=== PATIENT | male | born 2000 | race Caucasian/White ===

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

== ENCOUNTER 2022-02-11 11:39 | Emergency (ER) | payer MEDICAID, SELFPAY ==
[2022-02-11] VITALS (57 sets, daily range): BP systolic 100–123; BP diastolic 57–73; PULSE 54–78; RESP 6–24; TEMP 36.7; O2SAT 95–100
--- NOTE | 2022-02-11 12:00 | RT.EKG_ITS ---
APPROVED REPORT Exam: Resting ECG Reason for Exam: syncope Patient Location: E HR:61 bpm ECG Measurements Heart Rate 61 AXIS MN 194 P 50 QRSd 99 QRS 62 QT 372 T 46 QTc 375 Conclusion Sinus rhythm...normal P axis, V-rate 60- 99 ST elev, probable normal early repol pattern...ST elevation, age<55. Sinus. Normal axis. MN depression in diffuse leads. Early repolarization. No STEMI. I have reviewed and interpreted ECG and agree with software generated interpretation.
[2022-02-11 12:13] LABS: Abs Immature Grans 0.03 10^3/uL (0.0-0.06); Absolute Basophil Count 0.07 10^3/uL (0.0-0.2); Absolute Eosinophil Count 0.19 10^3/uL (0.0-0.7); Absolute Lymphocyte Count 1.27 10^3/uL (1.2-3.4); Absolute Monocyte Count 0.75 10^3/uL (0.1-0.8); Absolute Neutrophil Count 3.11 10^3/uL (1.2-6.7); Basophils % 1.3; Eosinophils % 3.5; HCT 37.4 % (40.0-50.0); HGB 12.8 g/dL (13.5-17.5); Immature Grans % 0.6; Lymphocytes % 23.4; MCH 31.9 pg (27.0-33.0); MCHC 34.2 % (32.0-36.0); MCV 93 fL (80-95); MPV 9.4 fL (8.0-11.0); Monocytes % 13.8; Neutrophils % 57.4; Platelet Count 246 10^3/uL (130-400); RBC 4.01 10^6/uL (4.36-5.78); RDW 12.3 % (11.8-14.1); RDW-SD 42.5 fL; WBC 5.42 10^3/uL (4.4-10.8)
--- NOTE | 2022-02-11 12:15 | DI.CT_ITS ---
Exam(s) CT HEAD WO EXAM: CT HEAD WO CLINICAL HISTORY: seizure vs syncope. TECHNIQUE: Imaging Protocol: Axial computed tomography images with coronal and sagittal reformatted images were created and reviewed COMPARISON: CT CT ORBITS WO from 04/24/2021 FINDINGS: There are no skull fractures. There is mucosal thickening and fluid in both maxillary sinuses consist ent with sinusitis. There is also mucosal thickening in the right sphenoid sinus. Left frontal sinu ses clear. Right frontal sinuses not developed. There is no fluid in the mastoid air cells. There is no evidence of intracranial hemorrhage, mass effect, or shift of midline structures. There are no extra-axial fluid collections. The ventricles are not enlarged or shifted and there is no blo od within the ventricular system nor within the basal cisterns. There is mural calcification evident within the left intracavernous internal carotid artery. No calc ification within the opposite-right ICA nor within the vertebral arteries at the skull base. IMPRESSION: There is calcification within the wall of the left internal carotid artery within the cavernous sinus . This is not a normal finding in a 21-year-old patient. Recommend further imaging. There is acute bilateral maxillary sinusitis. First read by [facility] Final report called by myself to ER physician 02/11/2022 2:55 p.m. RADIATION DOSE DELIVERED: 713.52mGy.cm Total DLP DATA REPOSITORY: All CT scans at this facility are submitted to the National Radiology Data Registry (NRDR) Dose Index Registry (DIR) with the [employer] (ACR). RADIATION OPTIMIZATION: All CT scans at this facility use at least one of these dose optimization te chniques: automated exposure control; mA and/or kV adjustment per patient size (includes targeted exa ms where dose is matched to clinical indication); or iterative reconstruction.
[2022-02-11 12:27] LABS: ALT 23 U/L (16-63); AST 17 U/L (15-37); Albumin 3.8 g/dL (3.4-5.0); Alkaline Phosphatase 84 U/L (46-116); Anion Gap 7.9 mmol/L (3-11); BUN 10 mg/dL (7-18); Bilirubin, Total 0.4 mg/dL (0.2-1.0); CO2 27.1 mmol/L (21.0-32.0); CREATININE 0.9 mg/dL (0.70-1.30); Calcium 8.7 mg/dL (8.5-10.1); Chloride 103 mmol/L (98-107); Estimated GFR 126.17 (mL/min/1.73m2); Glucose 109 mg/dL (74-106); Potassium 3.4 mmol/L (3.5-5.1); Sodium 138 mmol/L (136-145); Total Protein 7.1 g/dL (6.4-8.2)
[2022-02-11 13:12] LABS: Bilirubin Negative (Negative); Blood Negative (Negative); Clarity Sl Cloudy (Clear); Glucose Negative (Negative); Ketones Negative (Negative); Leukocyte Esterase Negative (Negative); Nitrite Negative (Negative); Urobilinogen 0.2 EU/dL (Up TO 0.2); pH 8.5 (5-8)
--- NOTE | 2022-02-11 13:15 | DI.CT_ITS ---
Exam(s) CT BRAIN NECK CTA EXAM: CT BRAIN NECK CTA CLINICAL HISTORY: syncope, dizzy. TECHNIQUE: Imaging Protocol: Axial CT angiography was performed with multi-slice acquisition and mu lti-planar and/or 3D reconstructions. CONTRAST MATERIAL: Intravenous: Omnipaque 350 Contrast volume:structured data in ml COMPARISON: CT CT renal colic wo from 06/09/[address] HEAD WO from 02/11/2022 FINDINGS: CTA Neck W: Aortic arch anatomy: The aortic arch anatomy is conventional and there is no significant stenosis at the origin of the great vessels off of the aortic arch. No intimal flap evident. Anterior circulation: Both common carotid arteries ascend with normal luminal diameters. At the level the carotid bulbs and proximal internal carotid arteries there is no significant plaque evident. No stenosis in the carotid bulbs and proximal ICAs and upper ICAs in the neck bilaterally. Posterior circulation: Vertebral arteries originated conventional fashion off of the subclavian arteries and there is no obv ious stenosis at the origin of the vertebral arteries. Both vertebral arteries exhibit normal equal luminal diameters within the foramen transversarium. Both vertebral arteries contribute to the formation of the basilar artery at the skull base. CTA Brain W: Anterior circulation: Both internal carotid arteries are patent in the skull base-carotid canals as well as within the cave rnous sinuses. There is no obvious significant stenosis within the left intracavernous and supraclin oid ICA. The supraclinoid aspects of the ICAs are patent. Left A1 segment is patent. Right A1 segment is not opacified, possibly developmental. Both anterior cerebral arteries are patent. No obvious aneurysm . Both middle cerebral arteries are patent with no evidence of significant stenosis nor intraluminal th rombus. There also no aneurysms of these vessels. Posterior circulation: The basilar artery ascends in the midline. Distally it gives off patent bilateral superior cerebella r arteries. Above this level the basilar artery terminates as patent right posterior cerebral artery. The patent left posterior cerebral artery is supplied by posterior communicating artery on the left side of the [id number]. There is no evidence of aneurysm at the tip of the basilar artery nor elsewhere in the [id number] is. CT BRAIN: There is no evidence of intracranial hemorrhage, mass effect, or shift of midline structures. There are no extra-axial fluid collections. Ventricles are not enlarged or shifted. There are no ring enh ancing lesions in the brain and no abnormal meningeal enhancement. IMPRESSION: 1. Patent carotid arteries in the neck. No hemodynamically significant stenosis. 2. Patent vertebral arteries. 3. Patent intracranial arteries. Discussed by phone with ER physician RADIATION DOSE DELIVERED: 1,193.41mGy.cm Total DLP DATA REPOSITORY: All CT scans at this facility are submitted to the National Radiology Data Registry (NRDR) Dose Index Registry (DIR) with the [employer] (ACR). RADIATION OPTIMIZATION: All CT scans at this facility use at least one of these dose optimization te chniques: automated exposure control; mA and/or kV adjustment per patient size (includes targeted exa ms where dose is matched to clinical indication); or iterative reconstruction.
[2022-02-11 13:17] LABS: *AMPHETAMINES SCREEN URINE Negative (Negative); *BARBITURATES SCREEN URINE Negative (Negative); *BENZODIAZEPINES SCREEN URINE Negative (Negative); Cannabinoids THC Positive (Negative); Cocaine Screen,Urine Negative (Negative); METHADONE URINE SCREEN Negative (Negative); OPIATES URINE SCREEN Negative (Negative)
[2022-02-11 13:19] LABS: Tricyclic Antidepressants Negative (Negative)
--- NOTE | 2022-02-11 13:19 | DI.VRAD_ITS ---
PROCEDURE INFORMATION: Exam: CT Head Without Contrast Exam date and time: 02/11/2022 1:01 PM Age: 21 years old Clinical indication: Patient HX: Seizure<24hrs; Dizziness; Additional info: Family HX brain aneurysm in father during teenage years TECHNIQUE: Imaging protocol: Computed tomography of the head without contrast. Radiation optimization: All CT scans at this facility use at least one of these dose optimization techniques: automated exposure control; mA and/or kV adjustment per patient size (includes targeted exams where dose is matched to clinical indication); or iterative reconstruction. COMPARISON: CT HEAD WO 04/24/2021 2:18 PM FINDINGS: Brain: Normal. No hemorrhage. Unremarkable white matter. No mass effect. Cerebral ventricles: No ventriculomegaly. Paranasal sinuses: Moderate mucosal thickening in the bilateral maxillary sinuses and fluid in the right maxillary sinus. Mucosal thickening in the bilateral anterior ethmoidal air cells. Right frontal sinus is hypoplastic. Mild mucosal thickening in the bilateral sphenoidal sinuses. Mastoid air cells: Visualized mastoid air cells are well aerated. Bones/joints: No acute fracture. Soft tissues: Unremarkable. IMPRESSION: 1. No acute intracranial abnormality. 2. Sinusitis as described above. Dictated and Authenticated by: Cordell Rojas MD. Ordering:[id number] Taylor MD
[2022-02-11 13:23] LABS: Bacteria Moderate HPF (Negative); C & S Indicated? Yes; Casts 0-2 Coarse Granular LPF (Negative); Crystals Few Amorphous HPF (Negative); Epithelial Cells Rare HPF (Negative); Mucus Trace (Negative); RBC 0-2 HPF (0-2); WBC 0-2 HPF (0-5)
[2022-02-11 13:24] LABS: ETHANOL BLOOD 3.6 mg/dL (<10); Magnesium 1.8 mg/dL (1.8-2.4); TSH 2.54 uIU/mL (0.52-4.13)
[2022-02-11] MEDS: Normal Saline - Diluent 50 ML VIAL IJ (13:32)
[2022-02-11] MEDS: Omnipaque 350 MG/ML 100 ML BTL IJ (13:32)
[2022-02-11] MEDS: Normal Saline Flush 10 ML SYR IVP (13:33)
--- NOTE | 2022-02-11 13:53 | NUR.NOTE ---
Nursing Note: lying
--- NOTE | 2022-02-11 14:26 | W.ED.GENAD ---
Discharge Plan Disposition Patient Disposition: Home Condition: Stable Discharge Details Clinical Impression: Loss of consciousness Primary Care Provider: Deb Rucker ED Provider: Claudia Kidd Home Meds and New Rx's Prescriptions: New ondansetron 4 mg tablet,disintegrating 4 mg PO DAILY Qty: 10 0RF Discharge Instructions Instructions: Syncope (DC), New-Onset Seizure in Adults (ED) Additional Instructions: At this time is unclear as to what caused your alteration in mental status, could be a syncopal or fainting spell or seizure Your CAT scans of your head and vessels do not show evidence of abnormality and your labs are all within normal limits I am referring you to neurology for outpatient follow-up I do not recommend operating a vehicle, working at height, or any activities where you may place her self at harm if you were to have another event Return earlier with recurrent episode, or with any new or worsening complaints Giving a prescription for Zofran as needed for nausea and vomiting Referrals: Deb Rucker MD [Primary Care Provider] - 1 day Alla Ramirez MD [ [facility] STAFF PHYSICIAN] - 1 day Medical Decision Making This 21-year-old male with history of period of alteration in mental status in the presence of syncope and upper respiratory symptoms His vitals have been stable and orthostatics did not show evidence of acute abnormality Diagnostic blood work does not show acute abnormality CT scan of brain was ordered initially CTA was ordered as there was mention of family member with a ruptured aneurysm, aneurysm was over read as without acute abnormality Patient remained stable throughout this encounter with stable vitals, ambulatory with steady gait Driving cessation, neurology referral, pediatric reassessment There was mention of sinusitis on CT scan, patient is asymptomatic with this and I do not see indication for antibiotics at this time There was no evidence of dysrhythmia on telemetry monitoring Return precautions discussed and patient expressed understanding Discharged home in care of his mother Medical Records Medical records reviewed: Yes I reviewed the patient's medical records. Lab Data Lab results reviewed: Yes I reviewed the patient's lab results. HPI General Date/Time Provider Initiated Documentation: 02/11/22 11:59. HPI Narrative: This 21-year-old male presents with report of seizure versus syncope, period of alteration mental status at approximately an hour prior to arrival. He has reportedly walking out of his room after using the restroom to urinate when he fell onto his bed and then rolled onto his floor. Parents are in the room and noticed that his hands are contracted and his back was arched. He was unresponsive for approximately 1 minute without any convulsions noted. When he regained consciousness he reportedly was slightly confused and tired. He has been sick with nausea and chills for the past several days reportedly. He denies any illicit drug use or alcohol consumption. He smokes marijuana but denies any additional medical drugs. He denies any chest pain or shortness of breath. He denies any dizziness or weakness. Denies any vision change. Related Data Home Medications Medication Instructions Recorded Confirmed ondansetron 4 mg disintegrating 4 mg PO DAILY #10 tabs 02/11/22 tablet Previous Rx's Medication Instructions Recorded ondansetron 4 mg disintegrating 4 mg PO DAILY #10 tabs 02/11/22 tablet Allergies Allergy/AdvReac Type Severity Reaction Status Date / Time No Known Allergies Allergy Verified 02/11/22 11:49 General Stated Complaint: Seizure HENRRY: 3 Review of Systems All systems reviewed & are unremarkable except as noted in HPI and below PFSH All Active Problems (Updated 02/11/22 @ 14:41 by SEBAS Waddell) Loss of consciousness (Acute) History of tonsillitis (Acute) 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 Father No problems noted. Brother No problems noted. Brother No problems noted. Social History Smoking/Tobacco Use Status: Never Second Hand Exposure: No Smoking risk assessment performed?: Yes Alcohol Intake: never Drug use: Never Substance use type: marijuana Details: THC 2 weeks ago Education Level: high school Details: 1O TH GRADE Pets and animals: Yes Pets and animals: cat(s) and dog(s) Do you feel safe at home: Yes Do you feel safe in your relationship?: Yes Exam Const General: cooperative and comfortable Orientation: alert and oriented x3 HENMT Head: normal to inspection Mouth: oral mucosae normal Eyes Pupils: PERRL Neck Other: no carotid bruit Resp Effort & Inspection: normal respiratory effort Auscultation: clear to auscultation bilaterally Cardio Rate: regular rate Rhythm: regular rhythm GI Inspection: normal to inspection Skin General skin exam: no rashes or lesions noted Neuro General: patient alert and patient oriented x3 Cranial Nerves: CN's II-XI intact bilaterally and tongue midline Cognition: normal cognition Speech: speech normal Course Vital Signs Vital signs: Vital Signs Temperature 36.7 C 02/11/22 11:41 Pulse 57 L 02/11/22 11:41 Respiratory Rate 16 02/11/22 11:41 Blood Pressure 109/57 L 02/11/22 11:41 Pulse Oximetry 100 02/11/22 11:41 Temperature 36.7 C 02/11/22 11:41 Pulse 75 02/11/22 13:50 Respiratory Rate 22 02/11/22 13:51 Respiratory Effort 02/11/22 11:46 Blood Pressure 106/66 02/11/22 13:50 Blood Pressure Position Supine 02/11/22 11:41 Pulse Oximetry 97 02/11/22 13:51 Oxygen Delivery Method Room Air 02/11/22 11:41 Oxygen Flow Rate 0 02/11/22 11:41 Pain Level 0 02/11/22 11:41 Comment 02/11/22 13:50 Lab/Test Results Lab/Test Results: 02/11/22 12:40 Urine - Reflex from Ua Urine Culture - Pending Laboratory Tests Range/Units 02/11/22 02/11/22 02/11/22 12:00 12:00 12:00 WBC (4.4-10.8) 10^3/uL 5.42 RBC (4.36-5.78) 10^6/uL 4.01 L Hgb (13.5-17.5) g/dL 12.8 L Hct (40.0-50.0) % 37.4 L MCV (80-95) fL 93 MCH (27.0-33.0) pg 31.9 MCHC (32.0-36.0) % 34.2 RDW (11.8-14.1) % 12.3 Plt Count (130-400) 10^3/uL 246 MPV (8.0-11.0) fL 9.4 Immature Gran % 0.6 Neutrophils % 57.4 Lymphocytes % 23.4 Monocytes % 13.8 Eosinophils % 3.5 Basophils % 1.3 Nucleated RBC % (0.0-0.3) % 0.0 Absolute Neutrophils (1.2-6.7) 10^3/uL 3.11 Absolute Lymphocytes (1.2-3.4) 10^3/uL 1.27 Absolute Monocytes (0.1-0.8) 10^3/uL 0.75 Absolute Eosinophils (0.0-0.7) 10^3/uL 0.19 Absolute Basophils (0.0-0.2) 10^3/uL 0.07 Sodium (136-145) mmol/L 138 Potassium (3.5-5.1) mmol/L 3.4 L Chloride (98-107) mmol/L 103 Carbon Dioxide (21.0-32.0) mmol/L 27.1 Anion Gap (3-11) mmol/L 7.9 BUN (7-18) mg/dL 10 Creatinine (0.70-1.30) mg/dL 0.9 Est GFR (CKD-EPI 2020) (mL/min/1.73m2) 126.17 Glucose (74-106) mg/dL 109 H Calcium (8.5-10.1) mg/dL 8.7 Magnesium (1.8-2.4) mg/dL 1.8 Total Bilirubin (0.2-1.0) mg/dL 0.4 AST (15-37) U/L 17 ALT (16-63) U/L 23 Alkaline Phosphatase (46-116) U/L 84 Total Protein (6.4-8.2) g/dL 7.1 Albumin (3.4-5.0) g/dL 3.8 TSH (0.52-4.13) uIU/mL 2.54 Urine Color (Yellow) Urine Clarity (Clear) Urine pH (5-8) Ur Specific [place] (1.005-1.025) Urine Protein (Negative) mg/dL Urine Ketones (Negative) mg/dL Urine Blood (Negative) Urine Nitrite (Negative) Urine Bilirubin (Negative) Urine Urobilinogen (Up TO 0.2) EU/dL Ur Leukocyte Esterase (Negative) Urine RBC (0-2) HPF Urine WBC (0-5) HPF Ur Epithelial Cells (Negative) HPF Urine Crystals (Negative) HPF Urine Bacteria (Negative) HPF Urine Casts (Negative) LPF Urine Mucus (Negative) Ur Culture Indicated? Urine Glucose (Negative) mg/dL Urine Opiates Screen (Negative) Urine Methadone Screen (Negative) Ur Barbiturates Screen (Negative) Ur Tricyclics Screen (Negative) Ur Amphetamines Screen (Negative) U Benzodiazepines Scrn (Negative) Urine Cocaine Screen (Negative) Ur THC Screen (Negative) Ethyl Alcohol (<10) mg/dL 3.6 Range/Units 02/11/22 02/11/22 12:40 12:55 WBC (4.4-10.8) 10^3/uL RBC (4.36-5.78) 10^6/uL Hgb (13.5-17.5) g/dL Hct (40.0-50.0) % MCV (80-95) fL MCH (27.0-33.0) pg MCHC (32.0-36.0) % RDW (11.8-14.1) % Plt Count (130-400) 10^3/uL MPV (8.0-11.0) fL Immature Gran % Neutrophils % Lymphocytes % Monocytes % Eosinophils % Basophils % Nucleated RBC % (0.0-0.3) % Absolute Neutrophils (1.2-6.7) 10^3/uL Absolute Lymphocytes (1.2-3.4) 10^3/uL Absolute Monocytes (0.1-0.8) 10^3/uL Absolute Eosinophils (0.0-0.7) 10^3/uL Absolute Basophils (0.0-0.2) 10^3/uL Sodium (136-145) mmol/L Potassium (3.5-5.1) mmol/L Chloride (98-107) mmol/L Carbon Dioxide (21.0-32.0) mmol/L Anion Gap (3-11) mmol/L BUN (7-18) mg/dL Creatinine (0.70-1.30) mg/dL Est GFR (CKD-EPI 2020) (mL/min/1.73m2) Glucose (74-106) mg/dL Calcium (8.5-10.1) mg/dL Magnesium (1.8-2.4) mg/dL Total Bilirubin (0.2-1.0) mg/dL AST (15-37) U/L ALT (16-63) U/L Alkaline Phosphatase (46-116) U/L Total Protein (6.4-8.2) g/dL Albumin (3.4-5.0) g/dL TSH (0.52-4.13) uIU/mL Urine Color (Yellow) Yellow Urine Clarity (Clear) Sl Cloudy Urine pH (5-8) 8.5 H Ur Specific [place] (1.005-1.025) 1.020 Urine Protein (Negative) mg/dL 100 H Urine Ketones (Negative) mg/dL Negative Urine Blood (Negative) Negative Urine Nitrite (Negative) Negative Urine Bilirubin (Negative) Negative Urine Urobilinogen (Up TO 0.2) EU/dL 0.2 Ur Leukocyte Esterase (Negative) Negative Urine RBC (0-2) HPF 0-2 Urine WBC (0-5) HPF 0-2 Ur Epithelial Cells (Negative) HPF Rare Urine Crystals (Negative) HPF Few Amorphous Urine Bacteria (Negative) HPF Moderate Urine Casts (Negative) LPF 0-2 Coarse Granular Urine Mucus (Negative) Trace Ur Culture Indicated? Yes Urine Glucose (Negative) mg/dL Negative Urine Opiates Screen (Negative) Negative Urine Methadone Screen (Negative) Negative Ur Barbiturates Screen (Negative) Negative Ur Tricyclics Screen (Negative) Negative Ur Amphetamines Screen (Negative) Negative U Benzodiazepines Scrn (Negative) Negative Urine Cocaine Screen (Negative) Negative Ur THC Screen (Negative) Positive A Ethyl Alcohol (<10) mg/dL
--- NOTE | 2022-02-11 14:30 | DI.VRAD_ITS ---
PROCEDURE INFORMATION: Exam: CTA Head With Contrast, Arteriography Exam date and time: 02/11/2022 1:19 PM Age: 21 years old Clinical indication: Other: Syncope, dizzy; Additional info: Family HX brain aneurysm in father during teenage years TECHNIQUE: Imaging protocol: Computed tomographic angiography of the head with contrast. Exam focused on the arteries. 3D rendering (Not supervised by radiologist): MIP and/or 3D reconstructed images were created by the technologist. Contrast material: ONIPAQUE 350; Contrast volume: 100 ml; Contrast route: INTRAVENOUS (IV); COMPARISON: CT HEAD WO 02/11/2022 1:01 PM FINDINGS: ANTERIOR CIRCULATION: Right internal carotid artery: Intracranial segment is patent with no significant stenosis. No aneurysm. Right middle cerebral artery: No occlusion or significant stenosis. No aneurysm. Right anterior cerebral artery: No occlusion or significant stenosis. No aneurysm. A1 segment of the right anterior cerebral artery is hypoplastic, a normal variation. Left internal carotid artery: Intracranial segment is patent with no significant stenosis. No aneurysm. Left middle cerebral artery: No occlusion or significant stenosis. No aneurysm. Left anterior cerebral artery: No occlusion or significant stenosis. No aneurysm. POSTERIOR CIRCULATION: Right vertebral artery: No occlusion or significant stenosis. No aneurysm. Left vertebral artery: No occlusion or significant stenosis. No aneurysm. Basilar artery: No occlusion or significant stenosis. No aneurysm. Right posterior cerebral artery: No occlusion or significant stenosis. No aneurysm. Left posterior cerebral artery: No occlusion or significant stenosis. No aneurysm. P1 segment of the left posterior cerebral artery hypoplastic with prominent left posterior communicating artery normal variation. Brain: No definite mass, mass effect, or midline shift. Cerebral ventricles: No ventriculomegaly. Paranasal sinuses: There is mucosal thickening in the bilateral maxillary sinuses with fluid noted in the right maxillary sinus. Mucosal thickening in the left anterior ethmoidal air cells and left frontal sinus and sphenoidal sinuses. Bones/joints: Unremarkable. No acute fracture. Soft tissues: Unremarkable. IMPRESSION: 1. No large vessel stenosis or occlusion. 2. No intracranial aneurysm. PROCEDURE INFORMATION: Exam: CTA Neck With Contrast Exam date and time: 02/11/2022 1:19 PM Age: 21 years old Clinical indication: Other: Syncope, dizzy; Additional info: Family HX brain aneurysm in father during teenage years TECHNIQUE: Imaging protocol: Computed tomographic angiography of the neck with contrast. 3D rendering (Not supervised by radiologist): MIP and/or 3D reconstructed images were created by the technologist. Contrast material: ONIPAQUE 350; Contrast volume: 100 ml; Contrast route: INTRAVENOUS (IV); COMPARISON: CT HEAD CERVICAL SPINE WO 09/29/2019 3:21 PM FINDINGS: Right common carotid artery: No stenosis. No dissection or occlusion. Right internal carotid artery: No stenosis of the extracranial segment. No dissection or occlusion. Right external carotid artery: No occlusion or stenosis of the origin. Left common carotid artery: No stenosis. No dissection or occlusion. Left internal carotid artery: No stenosis of the extracranial segment. No dissection or occlusion. Left external carotid artery: No occlusion or stenosis of the origin. Right vertebral artery: No stenosis. No dissection or occlusion. Left vertebral artery: No stenosis. No dissection or occlusion. Soft tissues: Normal. No significant soft tissue swelling. Bones/joints: No acute fracture. IMPRESSION: No stenosis or occlusion. REFERENCES: NASCET CRITERIA. The degree of stenosis in the cervical segment of the internal carotid artery is based on NASCET criteria. Normal is no stenosis. Mild is less than 50% stenosis. Moderate is 50-69% stenosis. Severe is 70% to 99% stenosis. Total occlusion is no detectable patent lumen. Dictated and Authenticated by: Cordell Rojas MD. Ordering:JABARI Taylor MD
--- NOTE | 2022-02-13 12:19 | PDOC.ERCMACT ---
- If Service Date Differs Date of service: 02/13/22 Time of Service: 12:19 Care Management Activity Note Justin is seen in the ED for loss of consciousness. At the request of ED provider, CM coordinates a referral to [facility] Neurology to assist Justin in obtaining a follow up appointment for further evaluation and treatment.
== END 2022-02-11 15:07 | disposition home or self-care (01) ==
PROVIDERS: Emergency Provider Physician Assistant; PCP Student in an Organized Health Care Education/Training Program
DX: R55 Syncope and collapse (principal); Z20.822 Contact with and (suspected) exposure to COVID-19
CPT/HCPCS: 70496; 70498; 80053; 80307; 93005; 96360; 99285; 70450; 80320; 81003; 81015; 83735; 84146; 84443; 85025; 87086; 93010; J3490

== ENCOUNTER 2022-03-02 01:40 | Outpatient (CLI) | payer MEDICAID, SELFPAY ==
--- NOTE | 2022-03-06 20:24 | PDOC.EEG_ITS ---
Neurology EEG EEG: [facility] Department of Neurology LONG-TERM AMBULATORY EEG REPORT Date of Recordin03/02/22 at 10:36:35 to 03/03/22 at 10:29:50 Interpreting Physician: Dr. Alla Ramirez PCP/Referring Provider: Dr. Theodora Rucker Reason for study: Justin is a 21 year-old with a long history of vasovagal syncope with a recent atypical episode of JUDY concerning for seizure. Current Medications: Home Medications Medication Instructions Recorded Confirmed Type Unknown [No Known Home Meds] 02/21/22 02/21/22 History METHODS: An 18-channel digitized electroencephalogram was recorded in the ambulatory setting with video. The 10/20 international system of electrode placement was used and bipolar and referential electrode montages were recorded. In addition to EEG the patient was monitored for EKG and by video. Activation procedures of photic stimulation and hyperventilation were performed if applicable. The duration of the recording was ~23.5 hours. DESCRIPTION OF EEG: Waking background activity: During maximal wakefulness an 11-Hz posterior background rhythm was present which was well-modulated, symmetrical, reactive to eye opening, and of moderate voltage. Faster frequencies were present in the bilateral anterior head regions. There was a normal anterior-posterior voltage gradient. Drowsy and sleeping background activity: During drowsiness, there was attenuation of the posterior dominant background rhythm and vertex waves. Normal stage II and III sleep was present with symmetrical sleep spindles, K- complexes, and vertex waves with slowing of the background rhythm to delta/theta frequencies. REM sleep manifested by rapid lateral eye movements and faster background rhythms was recorded. Arousal was unremarkable. Interictal abnormalities: none. Ictal findings: No events captured. Activating Procedures: Photic stimulation was performed which produced a symmetrical posterior driving response at various flash frequencies. Hyperventilation was performed with moderate effort and produced mild physiological slowing of the background. EKG: EKG revealed normal sinus rhythm. INTERPRETATION: This long-term EEG is normal during the awake and sleep states as well as during the activation procedures. PRIOR EEG: none CLINICAL CORRELATION: No focal regions of cerebral dysfunction or epileptiform activity was present. Epilepsy remains a clinical diagnosis and a normal EEG does not rule out epilepsy. Clinical correlation is advised. Alla Ramirez MD
== END 2022-03-02 01:41 | disposition home or self-care (01) ==
LOC: RT 01:40
PROVIDERS: PCP Student in an Organized Health Care Education/Training Program; Visit Provider Psychiatry & Neurology Neurology
DX: R41.89 Other symptoms and signs involving cognitive functions and awareness (principal)
CPT/HCPCS: 95714

== ENCOUNTER 2023-05-09 05:46 | Outpatient (CLI) | payer MEDICAID, SELFPAY ==
[2023-05-09 10:04] LABS: Abs Immature Grans 0.04 10^3/uL (0.0-0.06); Absolute Basophil Count 0.11 10^3/uL (0.0-0.2); Absolute Eosinophil Count 0.14 10^3/uL (0.0-0.7); Absolute Lymphocyte Count 1.78 10^3/uL (1.2-3.4); Absolute Monocyte Count 0.51 10^3/uL (0.1-0.8); Absolute Neutrophil Count 2.29 10^3/uL (1.2-6.7); Basophils % 2.3; Eosinophils % 2.9; HCT 43.9 % (40.0-50.0); HGB 14.9 g/dL (13.5-17.5); Immature Grans % 0.8; Lymphocytes % 36.6; MCH 32.3 pg (27.0-33.0); MCHC 33.9 % (32.0-36.0); MCV 95 fL (80-95); MPV 8.9 fL (8.0-11.0); Monocytes % 10.5; Neutrophils % 46.9; Platelet Count 301 10^3/uL (130-400); RBC 4.61 10^6/uL (4.36-5.78); RDW 12.3 % (11.8-14.1); RDW-SD 42.8 fL; WBC 4.87 10^3/uL (4.4-10.8)
[2023-05-09 10:40] LABS: ALT 23 U/L (16-63); AST 15 U/L (15-37); Albumin 4.6 g/dL (3.4-5.0); Alkaline Phosphatase 83 U/L (46-116); Anion Gap 9.2 mmol/L (3-11); BUN 15 mg/dL (7-18); Bilirubin, Total 0.7 mg/dL (0.2-1.0); CO2 29.8 mmol/L (21.0-32.0); CREATININE 1.1 mg/dL (0.70-1.30); Calcium 9.7 mg/dL (8.5-10.1); Chloride 104 mmol/L (98-107); Estimated GFR 98.56 (mL/min/1.73m2); Glucose 94 mg/dL (74-106); Potassium 4.1 mmol/L (3.5-5.1); Sodium 143 mmol/L (136-145); Total Protein 8.1 g/dL (6.4-8.2)
[2023-05-09 18:04] LABS: Prolactin 6.3 ng/mL (2.1-17.7)
== END 2023-05-09 05:47 | disposition home or self-care (01) ==
LOC: LBO 05:46
PROVIDERS: PCP Student in an Organized Health Care Education/Training Program; Visit Provider Nurse Practitioner Family
DX: Z00.00 Encounter for general adult medical examination without abnormal findings (principal)
CPT/HCPCS: 36415; 80053; 84146; 85025